=== PATIENT | male | born 1995 | race Caucasian/White ===

== ENCOUNTER 2021-04-16 17:25 | Emergency (ER) | payer OTHER ==
[~2021-04-16] VITALS: Ht 175.3 cm; Wt 82.7 kg
--- NOTE | 2021-04-16 18:36 | REPVR ---
PROCEDURE INFORMATION: Exam: CT Head Without Contrast Exam date and time: 04/16/2021 5:58 PM Age: 26 years old Clinical indication: Injury or trauma; Other: Mateo hit head; Bleeding/hemorrhage and blunt trauma (contusions or hematomas) TECHNIQUE: Imaging protocol: Computed tomography of the head without contrast. Radiation optimization: All CT scans at this facility use at least one of these dose optimization techniques: automated exposure control; mA and/or kV adjustment per patient size (includes targeted exams where dose is matched to clinical indication); or iterative reconstruction. COMPARISON: No relevant prior studies available. FINDINGS: Brain: No hemorrhage. Unremarkable white matter for the patient's age. No mass effect. No evolving territorial infarct. Cerebral ventricles: No ventriculomegaly. Paranasal sinuses: Retention cysts or polyps in the maxillary sinuses. Mastoid air cells: No significant mastoid effusions. Bones/joints: No acute calvarial fracture seen. No acute fracture seen. Soft tissues: There is right periauricular soft tissue edema with foci of air suggesting laceration. IMPRESSION: No acute intracranial abnormality seen. Electronically signed by: Lizbeth Nava On 04/16/2021 18:36:20 PM
--- NOTE | 2021-04-16 18:40 | REPVR ---
PROCEDURE INFORMATION: Exam: CT Maxillofacial Without Contrast Exam date and time: 04/16/2021 5:58 PM Age: 26 years old Clinical indication: Injury or trauma TECHNIQUE: Imaging protocol: Computed tomography images of the face without contrast. COMPARISON: No relevant prior studies available. FINDINGS: Orbital cavity: Orbits are normal. Globes are unremarkable. Bones/joints: No acute fracture seen. Chronic apex left deviation and spurring of the nasal septum. Paranasal sinuses: No sinus air-fluid levels. Mild polypoid mucosal thickening in the maxillary sinuses. Soft tissues: Right periauricular soft tissue injury. IMPRESSION: No facial bone fracture seen. Electronically signed by: Lizbeth Nava On 04/16/2021 18:39:50 PM
--- NOTE | 2021-04-16 18:43 | REPVR ---
PROCEDURE INFORMATION: Exam: CT Cervical Spine Without Contrast Exam date and time: 04/16/2021 5:58 PM Age: 26 years old Clinical indication: Injury or trauma; Other: Mateo hit head; Bleeding/hemorrhage and blunt trauma TECHNIQUE: Imaging protocol: Computed tomography images of the cervical spine without contrast. Radiation optimization: All CT scans at this facility use at least one of these dose optimization techniques: automated exposure control; mA and/or kV adjustment per patient size (includes targeted exams where dose is matched to clinical indication); or iterative reconstruction. COMPARISON: No relevant prior studies available. FINDINGS: Bones/joints: Slight levoconvex scoliosis. No acute fracture seen. Discs/Spinal canal/Neural foramina: No significant disc protrusion. No severe spinal canal stenosis. No significant neural foraminal narrowing. Lungs: Lung apices are normal. Soft tissues: Unremarkable. IMPRESSION: No cervical spine fracture seen. Electronically signed by: Lizbeth Nava On 04/16/2021 18:43:26 PM
[2021-04-16] MEDS ORDERED: ceFAZolin SOD 1 GM in D5W MINI-BAG PLUS 50 ML IV ONE (19:30)
[2021-04-16] MEDS ORDERED: NS 1,000 ML IV SCH (19:40)
--- NOTE | 2021-04-16 22:20 | REPVR ---
PROCEDURE INFORMATION: Exam: XR Right Elbow Exam date and time: 04/16/2021 8:43 PM Age: 26 years old Clinical indication: Other: Trauma TECHNIQUE: Imaging protocol: XR Right elbow. Views: 3 or more views. COMPARISON: No relevant prior studies available. FINDINGS: Bones/joints: No radiographic evidence of acute fracture or dislocation. Alignment anatomic. Joint spaces preserved. No definite effusion. Soft tissues: Grossly unremarkable. IMPRESSION: No acute radiographic findings. Electronically signed by: Sonu Angelo On 04/16/2021 22:20:00 PM
[2021-04-16 22:30] VITALS: BP 122/75
== END 2021-04-16 22:30 | disposition short-term general hospital (02) ==
LOC: M ED 17:25
DX: S01.311A Laceration without foreign body of right ear, initial encounter (principal); W22.8XXA Striking against or struck by other objects, initial encounter; Y92.9 Unspecified place or not applicable; Y93.9 Activity, unspecified; Y99.9 Unspecified external cause status
CPT/HCPCS: 70450; 70486; 72125; 73080; 96361; 96374; 99285; J0690